=== PATIENT | female | born 1955 | race Hispanic/Latino ===

== ENCOUNTER 2024-07-24 18:28 | Inpatient (IN) | payer MEDICARE ==
[~2024-07-24] VITALS: Ht 149.9 cm; Wt 61.2 kg
[2024-07-24 18:31] VITALS: RESP 20; TEMP 98.9
[2024-07-24 18:51] LABS: BASOPHILS % 0.4 % (0.0-1.0); EOSINOPHILS % 0.3 % (0.0-6.0); HEMATOCRIT 41.5 % (34.2-44.1); HEMOGLOBIN 14.2 g/dL (12.0-16.0); LYMPHOCYTES # (AUTO) 1.2 (1.0-3.2); LYMPHOCYTES % 15.6 % (18.0-39.1); MEAN CORPUSCULAR HEMOGLOBIN 32.2 pg (28-32); MEAN CORPUSCULAR HGB CONC 34.2 g/dL (31-35); MEAN CORPUSCULAR VOLUME 94.1 fL (81-99); MONOCYTES # (AUTO) 0.5 (0.2-0.8); MONOCYTES % 6.2 % (4.4-11.3); NEUTROPHILS # (AUTO) 5.7 (2.1-6.9); NEUTROPHILS % 76.4 % (38.7-80.0); PLATELET COUNT 277 x10e3/uL (140-360); RED BLOOD COUNT 4.41 x10e6/uL (3.6-5.1); WHITE BLOOD COUNT 7.39 x10e3/uL (4.8-10.8)
[2024-07-24 19:12] LABS: ALBUMIN 3.8 g/dL (3.5-5.0); ALBUMIN/GLOBULIN RATIO 1.1 (0.8-2.0); ANION GAP 19.6 mmol/L (8-16); BILIRUBIN,TOTAL 0.4 mg/dL (0.2-1.2); CALCIUM 9.8 mg/dL (8.4-10.2); CREATININE, SERUM 1.87 mg/dL (0.57-1.11); TOTAL PROTEIN 7.2 g/dL (6.5-8.1)
[2024-07-24] MEDS: SODIUM CHLORIDE 0.9% 1000ML 1,000 ML IV STA (19:16)
[2024-07-24 19:17] LABS: TROPONIN I 0.005 ng/mL (0-0.300)
[2024-07-24] MEDS: ONDANSETRON HCL INJ 2MG/ML 2ML 2 MG/ML VIAL IV STA (19:17)
[2024-07-24 19:28] LABS: POTASSIUM 2.6 mmol/L (3.5-5.1)
[2024-07-24] MEDS ORDERED: IOPAMIDOL 370 MG/ML 100 ML INFUS..BTL INJ ONE (20:31)
[2024-07-24] MEDS: POTASSIUM CHLORIDE 20MEQ/100ML 100 ML IV SCH (20:37)
[2024-07-24] MEDS: PROMETHAZINE 25MG/ NS 50ML (IV) IV PRN (22:10)
[2024-07-24 22:42] LABS: CLARITY,URINE CLEAR (CLEAR); COLOR,URINE YELLOW (YELLOW); GLUCOSE, URINE NEGATIVE (NEGATIVE); KETONES,URINE TRACE (NEGATIVE); LEUKOCYTE ESTERASE ,URINE NEGATIVE (NEGATIVE); NITRITE,URINE NEGATIVE (NEGATIVE); PH,URINE 5.5 (5 - 7); PROTEIN,URINE DIPSTICK 1+ (NEGATIVE)
[2024-07-24 22:43] LABS: BILIRUBIN,URINE NEGATIVE (NEGATIVE); URINE UROBILINOGEN 0.2 mg/dL (0.2 - 1)
[2024-07-24 22:53] LABS: BACTERIA,URINE MODERATE /HPF; EPITHELIAL CELLS,URINE FEW /LPF; WBC,URINE (MAN) >50 /HPF (0-5)
[2024-07-24] MEDS: POTASSIUM CHLORIDE 20 MEQ TAB CR PO STA (22:53)
[2024-07-24] MEDS ORDERED: POTASSIUM CHLORIDE 20 MEQ TAB CR PO ONE (23:02)
[2024-07-24] MEDS ORDERED: PROMETHAZINE 12.5MG/ NACL 0.9% 12.5 MG/50 ML BAG IV PRN (23:45)
[2024-07-25] VITALS (8 sets, daily range): BP systolic 109–152; BP diastolic 52–91; PULSE 76–87; RESP 17–21; TEMP 97–98.5; O2SAT 97–100
[2024-07-25] MEDS ORDERED: ARMOUR (04:14)
[2024-07-25] MEDS ORDERED: VENLAFAXINE HC100 MG (04:14)
[2024-07-25] MEDS ORDERED: BUSPIRONE HCL30 MG (04:14)
[2024-07-25] MEDS ORDERED: FAMOTIDINE40 MG (04:14)
[2024-07-25] MEDS ORDERED: ARMOUR THYROID60 MG (04:14)
[2024-07-25] MEDS ORDERED: OMEPRAZOLE20 MG (04:14)
[2024-07-25] MEDS ORDERED: LOSARTAN POTAS100 MG (04:14)
[2024-07-25] MEDS ORDERED: POTASSIUM CHLO20 ME2 (04:14)
[2024-07-25] MEDS ORDERED: AMLODIPINE BESYL5 MG (04:14)
[2024-07-25] MEDS ORDERED: GEMTESA75 MG (04:19)
[2024-07-25] MEDS ORDERED: BUPROPION HCL200 MG (04:19)
[2024-07-25] MEDS ORDERED: ZOLPIDEM (04:19)
[2024-07-25] MEDS: SODIUM CHLORIDE 0.9% 1000ML 1,000 ML IV SCH (04:28)
[2024-07-25 07:51] LABS: TROPONIN I 0.011 ng/mL (0-0.300)
[2024-07-25 09:02] LABS: BASOPHILS % 0.4 % (0.0-1.0); EOSINOPHILS # (AUTO) 0.1 (0.0-0.4); EOSINOPHILS % 0.6 % (0.0-6.0); HEMATOCRIT 39.6 % (34.2-44.1); HEMOGLOBIN 13.3 g/dL (12.0-16.0); LYMPHOCYTES # (AUTO) 2.4 (1.0-3.2); LYMPHOCYTES % 28.3 % (18.0-39.1); MEAN CORPUSCULAR HEMOGLOBIN 32.5 pg (28-32); MEAN CORPUSCULAR HGB CONC 33.6 g/dL (31-35); MEAN CORPUSCULAR VOLUME 96.8 fL (81-99); MONOCYTES % 11.7 % (4.4-11.3); NEUTROPHILS % 58.1 % (38.7-80.0); PLATELET COUNT 284 x10e3/uL (140-360); RED BLOOD COUNT 4.09 x10e6/uL (3.6-5.1); RED CELL DISTRIBUTION WIDTH 12.4 % (11.7-14.4); WHITE BLOOD COUNT 8.53 x10e3/uL (4.8-10.8)
[2024-07-25 09:15] LABS: ALBUMIN 3.6 g/dL (3.5-5.0); ALBUMIN/GLOBULIN RATIO 1.2 (0.8-2.0); ANION GAP 17.5 mmol/L (8-16); BILIRUBIN,TOTAL 0.5 mg/dL (0.2-1.2); CALCIUM 9.8 mg/dL (8.4-10.2); CREATININE, SERUM 1.46 mg/dL (0.57-1.11); MAGNESIUM 1.7 MG/DL (1.3-2.1); POTASSIUM 3.5 mmol/L (3.5-5.1); TOTAL PROTEIN 6.6 g/dL (6.5-8.1)
[2024-07-25 10:47] LABS: LYMPHOCYTES % (MANUAL) 24 % (19-48); MONOCYTES % (MANUAL) 10 % (3.4-9.0); NEUTROPHILS % (MANUAL) 66 % (40-74)
[2024-07-25 10:48] LABS: PLATELET ESTIMATE ADEQUATE; PLATELET MORPHOLOGY COMMENT NORMAL; RBC MORPHOLOGY COMMENT NORMAL
[2024-07-25] MEDS: PROMETHAZINE 12.5MG/ NACL 0.9% 50 ML IV PRN (14:01)
[2024-07-25 15:07] LABS: TROPONIN I 0.005 ng/mL (0-0.300)
[2024-07-26] VITALS (7 sets, daily range): BP systolic 92–138; BP diastolic 50–94; PULSE 73–92; RESP 16–20; TEMP 97–98.7; O2SAT 95–100
[2024-07-26] MEDS: METOCLOPRAMIDE HCL 10 MG/2ML VIAL IV SCH
[2024-07-26] MEDS: ONDANSETRON HCL INJ 2MG/ML 2ML 2 MG/ML VIAL IV PRN
[2024-07-26 05:25] LABS: BASOPHILS % 0.6 % (0.0-1.0); EOSINOPHILS # (AUTO) 0.1 (0.0-0.4); HEMATOCRIT 34.6 % (34.2-44.1); HEMOGLOBIN 11.5 g/dL (12.0-16.0); LYMPHOCYTES # (AUTO) 2.2 (1.0-3.2); LYMPHOCYTES % 33.2 % (18.0-39.1); MEAN CORPUSCULAR HEMOGLOBIN 32.8 pg (28-32); MEAN CORPUSCULAR HGB CONC 33.2 g/dL (31-35); MEAN CORPUSCULAR VOLUME 98.6 fL (81-99); MONOCYTES # (AUTO) 0.7 (0.2-0.8); MONOCYTES % 11.3 % (4.4-11.3); NEUTROPHILS # (AUTO) 3.4 (2.1-6.9); NEUTROPHILS % 51.8 % (38.7-80.0); PLATELET COUNT 233 x10e3/uL (140-360); RED BLOOD COUNT 3.51 x10e6/uL (3.6-5.1); RED CELL DISTRIBUTION WIDTH 12.6 % (11.7-14.4); WHITE BLOOD COUNT 6.57 x10e3/uL (4.8-10.8)
[2024-07-26 05:44] LABS: ALBUMIN 3.1 g/dL (3.5-5.0); ALBUMIN/GLOBULIN RATIO 1.3 (0.8-2.0); ANION GAP 14.7 mmol/L (8-16); BILIRUBIN,TOTAL 0.4 mg/dL (0.2-1.2); CALCIUM 8.9 mg/dL (8.4-10.2); CREATININE, SERUM 0.95 mg/dL (0.57-1.11); TOTAL PROTEIN 5.4 g/dL (6.5-8.1)
[2024-07-26 05:58] LABS: POTASSIUM 2.7 mmol/L (3.5-5.1)
[2024-07-26 06:10] LABS: TROPONIN I 0.008 ng/mL (0-0.300)
[2024-07-26] MEDS: POTASSIUM CHLORIDE 20MEQ/100ML 100 ML IV SCH (08:39)
[2024-07-26] MEDS: POTASSIUM CHLORIDE 20 MEQ TAB CR PO ONE (12:08)
[2024-07-26] MEDS: Morphine 2mg Syringe 2 MG/ML SYR IV PRN (12:58)
[2024-07-26] MEDS ORDERED: ACETAMINOPHEN 325 MG TAB PO PRN (18:30)
[2024-07-26] MEDS: DICYCLOMINE HCL 20 MG TAB PO STA (23:16)
[2024-07-27 05:38] LABS: BASOPHILS % 0.5 % (0.0-1.0); EOSINOPHILS # (AUTO) 0.2 (0.0-0.4); EOSINOPHILS % 2.7 % (0.0-6.0); HEMOGLOBIN 10.5 g/dL (12.0-16.0); LYMPHOCYTES % 31.5 % (18.0-39.1); MEAN CORPUSCULAR HEMOGLOBIN 32.3 pg (28-32); MEAN CORPUSCULAR HGB CONC 31.8 g/dL (31-35); MEAN CORPUSCULAR VOLUME 101.5 fL (81-99); MONOCYTES # (AUTO) 0.6 (0.2-0.8); MONOCYTES % 10.1 % (4.4-11.3); NEUTROPHILS # (AUTO) 3.4 (2.1-6.9); NEUTROPHILS % 54.4 % (38.7-80.0); PLATELET COUNT 198 x10e3/uL (140-360); RED BLOOD COUNT 3.25 x10e6/uL (3.6-5.1); RED CELL DISTRIBUTION WIDTH 12.8 % (11.7-14.4); WHITE BLOOD COUNT 6.26 x10e3/uL (4.8-10.8)
[2024-07-27] MEDS: THYROID PO SCH (06:00)
[2024-07-27 06:14] LABS: ANION GAP 10.1 mmol/L (8-16); CALCIUM 8.5 mg/dL (8.4-10.2); CREATININE, SERUM 0.86 mg/dL (0.57-1.11)
[2024-07-27 06:17] LABS: POTASSIUM 3.1 mmol/L (3.5-5.1)
[2024-07-27 08:00] VITALS: BP 110/67; PULSE 74; RESP 19; TEMP 98.1; O2SAT 98
[2024-07-27] MEDS: DICYCLOMINE HCL 20 MG TAB PO SCH (08:26)
[2024-07-27 09:01] VITALS: BP 110/67; PULSE 74; RESP 19; TEMP 98.1; O2SAT 98
[2024-07-27] MEDS: SODIUM BICARBONATE 650 MG TAB PO SCH (11:55)
[2024-07-27 12:00] VITALS: BP 118/61; PULSE 76; RESP 20; TEMP 97.5; O2SAT 99
[2024-07-27 16:00] VITALS: BP_SYST 111; BP_SYST 188; BP_DIAS 62; BP_DIAS 85; PULSE 82; PULSE 88; RESP 16; RESP 18; TEMP 97.4; TEMP 97.6; O2SAT 100; O2SAT 98
[2024-07-27] MEDS: POTASSIUM CHLORIDE 10MEQ EA PO ONE (17:21)
== END 2024-07-27 18:20 | disposition home or self-care (01) | DRG 690 ==
LOC: ER 18:35 → ERHOLD 23:42 → MED/SURG 07-25 01:22
PROVIDERS: ADMIT Family Medicine; ATTEND Family Medicine
DX: N39.0 Urinary tract infection, site not specified (principal); N17.9 Acute kidney failure, unspecified; K52.9 Noninfective gastroenteritis and colitis, unspecified; G31.84 Mild cognitive impairment of uncertain or unknown etiology; E78.5 Hyperlipidemia, unspecified; I10 Essential (primary) hypertension; F32.A Depression, unspecified; R53.81 Other malaise; E03.9 Hypothyroidism, unspecified; K21.9 Gastro-esophageal reflux disease without esophagitis; R15.9 Full incontinence of feces; E87.6 Hypokalemia; E86.0 Dehydration; K82.8 Other specified diseases of gallbladder; Z82.49 Family history of ischemic heart disease and other diseases of the circulatory system
CPT/HCPCS: 0223U; 36415; 74177; 76705; 76856; 80048; 80053; 81001; 82550; 83690; 83735; 84484; 85025; 93005; 99284; J2270; J2405; J2470; J2543; J2550; J2765; J3480; J7030; Q9967